=== PATIENT | female | born 1945 | race Caucasian/White ===

== ENCOUNTER 2016-07-26 07:23 | Day surgery (SDC) | payer OTHER ==
[~2016-07-26] VITALS: Ht 171.4 cm; Wt 92.0 kg
[~2016-07-26 07:23] MED LIST: ALEVE220 M2 PO; ANTIVERT25 MG PO; CILOSTAZOL50 MG PO; CLARITIN10 M3 PO; COLACE100 MG PO; COZAAR100 MG PO; FENOFIBRIC ACI135 MG PO; LIPITOR20 MG PO; LOFIBRA134 MG PO; LOPRESSOR50 MG PO; LOW DOSE ASPIRI81 M1 PO; MACROBID100 MG PO; METOPROLOL SUCC50 MG PO; MOTRIN600 MG PO; NATURAL BALANCE15 ML BOTH EYES; NEXIUM40 MG PO; NORCO 5/3251 TABLET PO; NORVASC10 MG PO; PERCOCET 5/31 TABLET PO; PROVENTIL HFA6.7 GM IH; PROZAC20 MG PO; ROSUVASTATIN CA10 MG PO; SKELAXIN800 MG PO; TYLENOL EXTRA500 MG PO; XANAX0.25 MG PO
[2016-07-26] MEDS ORDERED: ASPIR 8181 M1 PO (08:30)
== END 2016-07-26 14:45 | disposition home or self-care (01) ==
LOC: CATH 07:23
DX: R07.89 Other chest pain (principal); R94.39 Abnormal result of other cardiovascular function study; I77.810 Thoracic aortic ectasia; I25.10 Atherosclerotic heart disease of native coronary artery without angina pectoris; I10 Essential (primary) hypertension; E78.2 Mixed hyperlipidemia; K21.9 Gastro-esophageal reflux disease without esophagitis; Z68.33 Body mass index [BMI] 33.0-33.9, adult; F41.9 Anxiety disorder, unspecified; Z88.0 Allergy status to penicillin
CPT/HCPCS: C1769; C1887; J1644; J2250; J3010

== ENCOUNTER → 2016-08-08 | Outpatient (CLI) | payer OTHER ==
[~2016-08-08] MED LIST changes: +ASPIR 8181 M1 PO
== END | disposition home or self-care (01) ==
LOC: RES 09:52
DX: J44.9 Chronic obstructive pulmonary disease, unspecified (principal); R53.83 Other fatigue; I25.118 Atherosclerotic heart disease of native coronary artery with other forms of angina pectoris
CPT/HCPCS: 94060; 94726; 94729

== ENCOUNTER 2016-10-05 10:15 | Emergency (ER) | payer OTHER ==
[~2016-10-05] VITALS: Ht 170.2 cm; Wt 85.9 kg
[2016-10-05 11:06] LABS: COLOR YELLOW ((YELLOW))
[2016-10-05 11:07] LABS: ADD MIUA? YES; BILIRUBIN SMALL; BLOOD TRACE; GLUCOSE (STRIP) NEGATIVE; KETONES NEGATIVE; LEUKOCYTES MODERATE; NITRITE NEGATIVE; PROTEIN (STRIP) TRACE; UROBILINOGEN 0.2 MG/DL (0.2-1.0)
[2016-10-05 11:14] LABS: BACTERIA RARE /HPF; EPITHELIAL CELLS 1+ /HPF; MUCUS NONE SEEN /LPF; RED BLOOD CELLS 0-5 /HPF (0-5); WHITE BLOOD CELLS 0-5 /HPF (0-5)
[2016-10-05 11:23] LABS: EOSINOPHIL COUNT 0.1 K/uL (0-0.3); HEMATOCRIT 39.8 % (36.0-46.0); IMMATURE GRANULOCYTE (%) 0.3 % (0.0-0.7); INSTRUMENT ABS NEUTROPHIL CT 5.1 K/uL; LYMPHOCYTE COUNT 1.4 K/uL (1.0-2.8); MCH 27.9 PG (29.0-34.0); MCHC 31.2 G/DL (30.0-36.0); MCV 89.6 FL (83-99); MEAN PLAT.VOLUME 10.4 uM^3 (9.5-12.4); MONOCYTE (%) 8.5 % (3-12); MONOCYTE COUNT 0.6 K/uL (0-0.8); NEUTROPHIL (%) 70.2 % (45-76); NEUTROPHIL COUNT 5.1 K/uL (1.8-6.4); PLATELET COUNT 361 K/uL (156-360); RBC DIS.WIDTH-CV 13.4 % (11.8-14.6); RBC DIS.WIDTH-SD 44.2 % (39-53); RED BLOOD COUNT 4.44 M/uL (3.80-5.20); WHITE BLOOD COUNT 7.3 K/uL (4.1-10.2)
[2016-10-05 11:32] LABS: CHLORIDE 103 mEq/L (99-109); POTASSIUM 4.4 mEq/L (3.7-5.4); SODIUM 139 mEq/L (136-147)
[2016-10-05 11:34] LABS: GLUCOSE 108 mg/dL (70-99)
[2016-10-05 11:35] LABS: ANION GAP 8 MEQ/L (2-14)
[2016-10-05 11:36] LABS: TOTAL BILIRUBIN 0.4 mg/dL (0.0-1.0)
[2016-10-05 11:37] LABS: ALKALINE PHOSPHATASE 81 IU/L (3-129)
[2016-10-05 11:38] LABS: GFR ESTIMATE (CALCULATED) > 59 mL/min/
[2016-10-05 11:39] LABS: UREA NITROGEN (BUN) 13 mg/dL (9-23)
[2016-10-05 11:41] LABS: LIPASE 44 U/L (1.0-51.0)
[2016-10-05] MEDS ORDERED: BACTRIM,SEPT1 TABLET PO (12:20)
[2016-10-05] MEDS ORDERED: FLAGYL500 MG PO (12:20)
[2016-10-05 12:30] VITALS: BP 158/96
== END 2016-10-05 12:30 | disposition home or self-care (01) ==
LOC: EME 10:15
PROVIDERS: Physician Assistant
DX: K57.92 Diverticulitis of intestine, part unspecified, without perforation or abscess without bleeding (principal); E78.5 Hyperlipidemia, unspecified; K21.9 Gastro-esophageal reflux disease without esophagitis; I10 Essential (primary) hypertension
CPT/HCPCS: 74176; 80053; 81003; 83690; 85025; 99281; 99283

== ENCOUNTER 2016-10-08 05:50 | Emergency (ER) | payer OTHER ==
[~2016-10-08] VITALS: Ht 170.2 cm; Wt 85.6 kg
[~2016-10-08 05:50] MED LIST changes: +BACTRIM,SEPT1 TABLET PO; +FLAGYL500 MG PO
[2016-10-08 06:50] LABS: HEMATOCRIT 40.6 % (36.0-46.0); MCH 27.8 PG (29.0-34.0); MCHC 31.3 G/DL (30.0-36.0); MCV 88.8 FL (83-99); PLATELET COUNT 372 K/uL (156-360); RBC DIS.WIDTH-CV 13.5 % (11.8-14.6); RED BLOOD COUNT 4.57 M/uL (3.80-5.20); WHITE BLOOD COUNT 7.2 K/uL (4.1-10.2)
[2016-10-08 07:03] LABS: CHLORIDE 106 mEq/L (99-109); POTASSIUM 4.5 mEq/L (3.7-5.4); SODIUM 141 mEq/L (136-147)
[2016-10-08 07:05] LABS: GLUCOSE 120 mg/dL (70-99)
[2016-10-08 07:06] LABS: ANION GAP 10 MEQ/L (2-14)
[2016-10-08 07:08] LABS: ALKALINE PHOSPHATASE 74 IU/L (3-129)
[2016-10-08 07:09] LABS: GFR ESTIMATE (CALCULATED) > 59 mL/min/
[2016-10-08 07:10] LABS: UREA NITROGEN (BUN) 12 mg/dL (9-23)
[2016-10-08 07:11] LABS: TOTAL BILIRUBIN 0.3 mg/dL (0.0-1.0)
[2016-10-08 08:00] LABS: ADD MIUA? YES; BILIRUBIN NEGATIVE; BLOOD NEGATIVE; COLOR YELLOW ((YELLOW)); GLUCOSE (STRIP) NEGATIVE; KETONES NEGATIVE; LEUKOCYTES TRACE; NITRITE NEGATIVE; PROTEIN (STRIP) NEGATIVE; SPECIFIC GRAVITY 1.009 (1.000-1.030); UROBILINOGEN 0.2 MG/DL (0.2-1.0)
[2016-10-08 08:24] LABS: BACTERIA RARE /HPF; EPITHELIAL CELLS RARE /HPF; MUCUS TRACE /LPF; RED BLOOD CELLS 30-40 /HPF (0-5); UCUL ADDED? NO; WHITE BLOOD CELLS 0-5 /HPF (0-5)
[2016-10-08] MEDS ORDERED: PERCOCET 5/31 TABLET PO (10:06)
[2016-10-08] MEDS ORDERED: ZOFRAN ODT4 MG PO (10:06)
[2016-10-08 10:32] VITALS: BP 159/99
== END 2016-10-08 10:33 | disposition home or self-care (01) ==
LOC: EME 05:50
DX: K57.92 Diverticulitis of intestine, part unspecified, without perforation or abscess without bleeding (principal); E78.5 Hyperlipidemia, unspecified; Z95.1 Presence of aortocoronary bypass graft; Z79.82 Long term (current) use of aspirin
CPT/HCPCS: 74177; 80053; 81003; 85027; 99281; 99285; J1885; J2270; J2405; J7030

== ENCOUNTER 2017-03-21 04:28 | Emergency (ER) | payer OTHER ==
[~2017-03-21] VITALS: Ht 170.2 cm; Wt 88.4 kg
[~2017-03-21 04:28] MED LIST changes: +ZOFRAN ODT4 MG PO
[2017-03-21 05:34] LABS: CHLORIDE 107 mEq/L (99-109); POTASSIUM 3.8 mEq/L (3.7-5.4); SODIUM 139 mEq/L (136-147)
[2017-03-21 05:36] LABS: GLUCOSE 118 mg/dL (70-99)
[2017-03-21 05:37] LABS: ANION GAP 7 MEQ/L (2-14)
[2017-03-21 05:38] LABS: EOSINOPHIL (%) 1.5 % (0-5); EOSINOPHIL COUNT 0.1 K/uL (0-0.3); HEMATOCRIT 38.5 % (36.0-46.0); IMMATURE GRANULOCYTE (%) 0.2 % (0.0-0.7); INSTRUMENT ABS NEUTROPHIL CT 1.9 K/uL; LYMPHOCYTE COUNT 1.8 K/uL (1.0-2.8); MCH 28.1 PG (29.0-34.0); MCHC 32.2 G/DL (30.0-36.0); MCV 87.1 FL (83-99); MEAN PLAT.VOLUME 9.9 uM^3 (9.5-12.4); MONOCYTE (%) 7.1 % (3-12); MONOCYTE COUNT 0.3 K/uL (0-0.8); NEUTROPHIL (%) 47.4 % (45-76); NEUTROPHIL COUNT 1.9 K/uL (1.8-6.4); PLATELET COUNT 305 K/uL (156-360); RBC DIS.WIDTH-CV 13.5 % (11.8-14.6); RBC DIS.WIDTH-SD 43.8 % (39-53); RED BLOOD COUNT 4.42 M/uL (3.80-5.20); TOTAL BILIRUBIN 0.4 mg/dL (0.0-1.0); WHITE BLOOD COUNT 4.1 K/uL (4.1-10.2)
[2017-03-21 05:39] LABS: ALKALINE PHOSPHATASE 74 IU/L (3-129)
[2017-03-21 05:40] LABS: GFR ESTIMATE (CALCULATED) > 59 mL/min/
[2017-03-21 05:41] LABS: UREA NITROGEN (BUN) 13 mg/dL (9-23)
[2017-03-21] MEDS ORDERED: ROXICODONE5 MG PO (07:02)
[2017-03-21] MEDS ORDERED: MOTRIN600 MG PO (07:02)
[2017-03-21 07:18] VITALS: BP 170/83
== END 2017-03-21 07:22 | disposition home or self-care (01) ==
LOC: EME 04:28
PROVIDERS: Emergency Medicine
DX: M54.5 Low back pain (principal); G89.29 Other chronic pain; I10 Essential (primary) hypertension; K21.9 Gastro-esophageal reflux disease without esophagitis; E78.5 Hyperlipidemia, unspecified; F41.9 Anxiety disorder, unspecified; F32.9 Major depressive disorder, single episode, unspecified; Z95.1 Presence of aortocoronary bypass graft; Z88.0 Allergy status to penicillin; Z79.82 Long term (current) use of aspirin
CPT/HCPCS: 74174; 80053; 85025; 99281; 99285

== ENCOUNTER → 2017-04-23 | Outpatient (CLI) | payer MEDICARE, OTHER ==
[~2017-04-23] MED LIST changes: +ROXICODONE5 MG PO
== END | disposition home or self-care (01) ==
LOC: CDC 11:49
DX: Z01.810 Encounter for preprocedural cardiovascular examination (principal); R94.31 Abnormal electrocardiogram [ECG] [EKG]
CPT/HCPCS: 93000

== ENCOUNTER 2017-05-19 07:08 | Emergency (ER) | payer OTHER ==
[~2017-05-19] VITALS: Ht 170.2 cm; Wt 89.5 kg
[2017-05-19] MEDS ORDERED: FLEXERIL10 MG PO (09:02)
[2017-05-19] MEDS ORDERED: PERCOCET 5/31 TABLET PO (09:02)
[2017-05-19] MEDS ORDERED: MEDROL DOSEPAK4 MG PO (09:02)
[2017-05-19 09:18] VITALS: BP 108/57
== END 2017-05-19 09:20 | disposition home or self-care (01) ==
LOC: EME 07:08
DX: M54.41 Lumbago with sciatica, right side (principal); I73.9 Peripheral vascular disease, unspecified; M41.9 Scoliosis, unspecified; K21.9 Gastro-esophageal reflux disease without esophagitis; I10 Essential (primary) hypertension; F41.9 Anxiety disorder, unspecified; F32.9 Major depressive disorder, single episode, unspecified; E78.5 Hyperlipidemia, unspecified; Z88.0 Allergy status to penicillin; Z95.1 Presence of aortocoronary bypass graft; Z79.82 Long term (current) use of aspirin
CPT/HCPCS: J1100

== ENCOUNTER 2017-05-31 21:36 | Inpatient (IN) | payer OTHER ==
[~2017-05-31] VITALS: Ht 171.4 cm; Wt 98.4 kg
[~2017-05-31 21:36] MED LIST changes: +CILOSTAZOL100 MG PO; -CILOSTAZOL50 MG PO; +FLEXERIL10 MG PO; +LEXAPRO10 MG PO; +MAGNESIUM OXID200 MG PO; +MEDROL DOSEPAK4 MG PO; -NORVASC10 MG PO; +NORVASC5 MG PO; +PLAVIX75 MG PO; +PROTONIX40 MG PO; +TOPROL XL50 MG PO
[2017-06-01] VITALS (8 sets, daily range): BP systolic 67–123; BP diastolic 42–60
[2017-06-01 09:53] LABS: HEMATOCRIT 35.5 % (36.0-46.0); HEMOGLOBIN 11.3 G/DL (11.9-15.5); MCHC 31.8 G/DL (30.0-36.0); MCV 88.1 FL (83-99); PLATELET COUNT 211 K/uL (156-360); RBC DIS.WIDTH-CV 14.5 % (11.8-14.6); RBC DIS.WIDTH-SD 46.6 % (39-53); RED BLOOD COUNT 4.03 M/uL (3.80-5.20); WHITE BLOOD COUNT 6.6 K/uL (4.1-10.2)
[2017-06-01 10:04] LABS: CHLORIDE 108 MEQ/L (99-109); SODIUM 138 MEQ/L (136-147)
[2017-06-01 10:10] LABS: CREATININE 0.7 MG/DL (0.6-1.3); GFR ESTIMATE (CALCULATED) > 59 mL/min/; GLUCOSE 94 mg/dL (70-99); UREA NITROGEN (BUN) 10 mg/dL (9-23)
[2017-06-01 14:37] LABS: HEMATOCRIT 32.5 % (36.0-46.0); HEMOGLOBIN 10.3 G/DL (11.9-15.5); MCH 28.1 PG (29.0-34.0); MCHC 31.7 G/DL (30.0-36.0); MCV 88.6 FL (83-99); PLATELET COUNT 183 K/uL (156-360); RBC DIS.WIDTH-CV 14.6 % (11.8-14.6); RED BLOOD COUNT 3.67 M/uL (3.80-5.20); WHITE BLOOD COUNT 6.7 K/uL (4.1-10.2)
[2017-06-01 14:59] LABS: TROP-I INTERPRETATION NEGATIVE; TROPONIN-I < 0.01 ng/mL (0.0-0.30)
[2017-06-01 15:01] LABS: CHLORIDE 109 MEQ/L (99-109); CREATININE 0.8 MG/DL (0.6-1.3); GFR ESTIMATE (CALCULATED) > 59 mL/min/; GLUCOSE 120 mg/dL (70-99); POTASSIUM 4.1 MEQ/L (3.7-5.4); SODIUM 138 MEQ/L (136-147); UREA NITROGEN (BUN) 11 mg/dL (9-23)
[2017-06-01 18:47] LABS: HEMATOCRIT 27.3 % (36.0-46.0); HEMOGLOBIN 8.6 G/DL (11.9-15.5); MCV 89.2 FL (83-99)
[2017-06-02] VITALS (22 sets, daily range): BP systolic 84–143; BP diastolic 40–68
[2017-06-02 05:56] LABS: HEMATOCRIT 23.4 % (36.0-46.0); HEMOGLOBIN 7.4 G/DL (11.9-15.5); MCH 27.7 PG (29.0-34.0); MCHC 31.6 G/DL (30.0-36.0); MCV 87.6 FL (83-99); PLATELET COUNT 177 K/uL (156-360); RBC DIS.WIDTH-CV 14.6 % (11.8-14.6); RBC DIS.WIDTH-SD 46.7 % (39-53); WHITE BLOOD COUNT 7.9 K/uL (4.1-10.2)
[2017-06-02 05:59] LABS: RED BLOOD COUNT 2.67 M/uL (3.80-5.20)
[2017-06-02 06:11] LABS: TROP-I INTERPRETATION NEGATIVE; TROPONIN-I < 0.01 ng/mL (0.0-0.30)
[2017-06-02 06:19] LABS: CHLORIDE 104 MEQ/L (99-109); CREATININE 0.9 MG/DL (0.6-1.3); GFR ESTIMATE (CALCULATED) > 59 mL/min/; GLUCOSE 147 mg/dL (70-99); POTASSIUM 4.3 MEQ/L (3.7-5.4); SODIUM 135 MEQ/L (136-147); UREA NITROGEN (BUN) 18 mg/dL (9-23)
[2017-06-03 00:09] VITALS: BP 124/56
[2017-06-03 04:42] VITALS: BP 136/63
[2017-06-03 05:58] LABS: BASOPHIL (%) 0.4 % (0-1); EOSINOPHIL (%) 1.2 % (0-5); EOSINOPHIL COUNT 0.1 K/uL (0-0.3); HEMATOCRIT 26.8 % (36.0-46.0); HEMOGLOBIN 8.6 G/DL (11.9-15.5); IMMATURE GRANULOCYTE (%) 0.4 % (0.0-0.7); LYMPHOCYTE (%) 24.7 % (15-42); LYMPHOCYTE COUNT 1.3 K/uL (1.0-2.8); MCH 28.4 PG (29.0-34.0); MCHC 32.1 G/DL (30.0-36.0); MCV 88.4 FL (83-99); MONOCYTE (%) 13.4 % (3-12); MONOCYTE COUNT 0.7 K/uL (0-0.8); NEUTROPHIL (%) 59.9 % (45-76); NEUTROPHIL COUNT 3.1 K/uL (1.8-6.4); PLATELET COUNT 147 K/uL (156-360); RBC DIS.WIDTH-CV 15.1 % (11.8-14.6); RBC DIS.WIDTH-SD 48.5 % (39-53); RED BLOOD COUNT 3.03 M/uL (3.80-5.20); WHITE BLOOD COUNT 5.1 K/uL (4.1-10.2)
[2017-06-03 07:42] VITALS: BP 150/64
[2017-06-03] MEDS ORDERED: ENDOCET 5-3251 EACH PO (09:43)
== END 2017-06-03 11:43 | disposition home or self-care (01) | DRG 254 ==
LOC: ENRESERV 21:36 → 2SOUTH 06-01 07:03 → ENRESERV 06-01 07:20 → 3EAST 06-01 07:21 → 4WEST 06-01 07:21 → 2SOUTH 06-01 09:41 → ENRESERV 06-01 14:21 → 3EAST 06-01 14:38 → 4WEST 06-01 16:16 → ENRESERV 06-02 14:57 → 3EAST 06-02 16:53
PROVIDERS: Surgery
DX: I70.221 Atherosclerosis of native arteries of extremities with rest pain, right leg (principal); I10 Essential (primary) hypertension; K21.9 Gastro-esophageal reflux disease without esophagitis; I25.10 Atherosclerotic heart disease of native coronary artery without angina pectoris; Z95.1 Presence of aortocoronary bypass graft; Z86.718 Personal history of other venous thrombosis and embolism; Z79.02 Long term (current) use of antithrombotics/antiplatelets; Z79.82 Long term (current) use of aspirin; Z88.0 Allergy status to penicillin; Z88.1 Allergy status to other antibiotic agents
CPT/HCPCS: 80048; 80048 91; 82948; 84484; 85014; 85018; 85025; 85027; 86850; 86900; 86901; 86920; 87641; 93005; 94010; 94640; 94640 76; 94799; 99202; J0131; J0690; J1100; J1170; J1644; J1650; J2250; J2405; J2710; J2720; J3010; J7120; P9016

== ENCOUNTER 2017-07-10 10:08 | Emergency (ER) | payer OTHER ==
[~2017-07-10] VITALS: Ht 170.2 cm; Wt 87.8 kg
[~2017-07-10 10:08] MED LIST changes: +ENDOCET 5-3251 EACH PO
[2017-07-10] MEDS ORDERED: PERCOCET 5/31 TABLET PO (10:40)
[2017-07-10 10:50] VITALS: BP 142/68
== END 2017-07-10 10:51 | disposition home or self-care (01) ==
LOC: EME 10:08
DX: M54.5 Low back pain (principal); M41.9 Scoliosis, unspecified; I10 Essential (primary) hypertension; E78.5 Hyperlipidemia, unspecified; K21.9 Gastro-esophageal reflux disease without esophagitis; F41.9 Anxiety disorder, unspecified; F32.9 Major depressive disorder, single episode, unspecified; Z95.1 Presence of aortocoronary bypass graft; Z79.82 Long term (current) use of aspirin; Z88.0 Allergy status to penicillin; Z88.1 Allergy status to other antibiotic agents
CPT/HCPCS: 99281; 99284; J1885

== ENCOUNTER → 2017-09-02 | Outpatient (CLI) | payer MEDICARE, OTHER | END | disposition home or self-care (01) | LOC: CDC 15:05 | DX: Z01.810 Encounter for preprocedural cardiovascular examination (principal); I70.25 Atherosclerosis of native arteries of other extremities with ulceration; R94.31 Abnormal electrocardiogram [ECG] [EKG] | CPT/HCPCS: 93000 ==